=== PATIENT | female | born 1980 | race African-American/Black ===

== ENCOUNTER 2023-09-08 18:21 | Emergency (ER) | payer SELFPAY ==
[2023-09-08 18:55] VITALS: BP 127/80; PULSE 60; RESP 18; TEMP 98.4; BMI 26.6
[2023-09-08] MEDS ORDERED: IBUPROFEN 600 MG TABLET (FP) PO ONE (20:25)
[2023-09-08] MEDS ORDERED: SULFAMETHOXAZOLE/TRIMETHOPRIM 800MG/160MG D.S. TABLET ONE (20:25)
[2023-09-08] MEDS: SULFAMETHOXAZOLE/TRIMETHOPRIM 800MG/160MG D.S. TABLET PO ONE (20:26)
[2023-09-08] MEDS: IBUPROFEN 600 MG TABLET (FP) PO ONE (20:26)
== END 2023-09-08 20:31 | disposition home or self-care (01) ==
LOC: JERFT 18:21
PROC: 0H9GXZZ Drainage of Left Hand Skin, External Approach (ICD-10-PCS; principal; 2023-09-08)
DX: L03.012 Cellulitis of left finger (principal)
CPT/HCPCS: 99283-25